=== PATIENT | female | born 1955 | race Caucasian/White ===

== ENCOUNTER 2021-09-29 15:10 | Inpatient (IN) | payer MEDICARE, OTHER ==
[~2021-09-29] VITALS: Ht 154.9 cm; Wt 77.1 kg
[2021-09-29 15:40] VITALS: BP 146/65
--- NOTE | 2021-09-29 15:55 | NUR ---
65 year old female received from [facility] to room 322 for nstemi .pt is axox4 /vs are stable call light with in reach ,orient the pt to room and surroundings ,md notified for the admission
[2021-09-29] MEDS: IV 1/2NS 1000 ML 1,000 ML IV PRN (17:16)
[2021-09-29] MEDS ORDERED: PANTOPRAZOLE SODIUM 40 MG VIAL IV SCH (18:00)
[2021-09-29] MEDS: HYDROCODONE/APAP 5-325MG TABLET PO PRN (18:21)
--- NOTE | 2021-09-29 20:00 | NUR ---
Patient still complains of pain at groin area radiating to thigh with a pain scale 10/10. Notified Dr. Blum regarding patient's pain. Dr Blum to put in pain med. Noted and carried out.
[2021-09-29] MEDS ORDERED: ACETAMINOPHEN 325 MG TABLET PO PRN (20:15)
[2021-09-29] MEDS ORDERED: ONDANSETRON 4 MG/2 ML VIAL IV PRN (20:15)
[2021-09-29] MEDS ORDERED: MORPHINE SULFATE 2 MG/1 ML DISP.SYRIN IV PRN (20:15)
[2021-09-29] MEDS ORDERED: REMEDY ESSENTIAL ZINC PASTE 113 GM TP PRN (20:15)
[2021-09-30 00:06] VITALS: BP 133/67
[2021-09-30 04:24] VITALS: BP 130/51
[2021-09-30] MEDS ORDERED: HYDROMORPHONE 1 MG/1 ML DISP.SYRIN IV ONE (06:45)
--- NOTE | 2021-09-30 06:45 | NUR ---
Dr. Corbin at bedside, update given.
[2021-09-30 07:30] LABS: BILIRUBIN,TOTAL 0.6 mg/dL (0.2-1.0); CREATININE 1.5 mg/dL (0.6-1.3); MAGNESIUM 1.7 mg/dL (1.8-2.4); PHOSPHOROUS 3.2 mg/dL (2.5-4.9); POTASSIUM 4.6 mmol/L (3.5-5.1); TOTAL PROTEIN, SERUM 6.7 g/dL (6.4-8.2)
[2021-09-30 07:36] LABS: HEMATOCRIT 37.1 % (31.2-41.9); MEAN CORPUSCULAR HEMOGLOBIN 30.1 uug (24.7-32.8); MEAN CORPUSCULAR VOLUME 88.4 fL (75.5-95.3); PLATELET COUNT (AUTO) 142 K/uL (179-408)
--- NOTE | 2021-09-30 07:42 | NUR ---
Dilaudid 0.5 mg wasted at bin and witness by BIRGIT Auguste. Dilaudid 0.5mg IV given as ordered.
--- NOTE | 2021-09-30 08:00 | NUR ---
awake alert and oriented x3 no ss of resp distress but mild abdominal pain. awaiting CT abdomen
[2021-09-30] MEDS: PANTOPRAZOLE SODIUM 40 MG VIAL IV SCH (08:45)
[2021-09-30] MEDS: MAGNESIUM SULFATE/D5W 100 ML IV SCH ×2 (09:27→10:32)
[2021-09-30] MEDS: IV 1/2NS 1000 ML 1,000 ML IV PRN (10:32)
--- NOTE | 2021-09-30 11:45 | NUR ---
DR HERMAN'S OFFICE NOTIFIED REGARDING CONSULT MESSAGE LEFT WITH MATH PROFESSOR
[2021-09-30 12:00] VITALS: BP 141/57
--- NOTE | 2021-09-30 13:07 | NUR ---
resting comfortably in but still c/o on and off abdominal pain 09/[address] abdomen/pelvis. no nausea and vomiting.
[2021-09-30] MEDS: HYDROCODONE/APAP 5-325MG TABLET PO PRN ×2 (13:29→22:38)
[2021-09-30 16:00] VITALS: BP 124/59
--- NOTE | 2021-09-30 17:49 | NUR ---
[facility] AWAITING FOR UROLOGIST REGARDING CONSULT. CONTINUE WITH PAIN MANAGEMENT WITH GOOD RELIEF FROM [facility]
[2021-09-30 20:00] VITALS: BP 115/55
[2021-09-30] MEDS ORDERED: CEFTRIAXONE 1 G VIAL IM SCH (20:45)
--- NOTE | 2021-09-30 21:24 | NUR ---
Dr Kenyon in and seen patient and wiht orders and carried out/npo p midnight for the ordered cyctoscopy,right IJ stent placement ,fluoroscopy in am.consent to be signed
[2021-09-30] MEDS ORDERED: CEFTRIAXONE 1 G in IV DEXTROSE 5% 50 ML IV SCH ×2 (21:30→22:00)
--- NOTE | 2021-09-30 21:39 | NUR ---
patient claims the procedure ordered was explained to her by the physician but will sign the consent in the morning. informed that she will be npo p midnight for the ordered procedure.
[2021-09-30 22:16] LABS: *BILIRUBIN,URIN NEGATIVE (NEGATIVE); *BLOOD, URINE 2+ (NEGATIVE); *CLARITY,URINE CLEAR (CLEAR); *COLOR,URINE YELLOW (YELLOW); *KETONES,URINE NEGATIVE (NEGATIVE); *UROBILINOGEN,URINE 0.2 E.U./dl (NORMAL); LEUKOCYTE ESTERASE ,URINE NEGATIVE (NEGATIVE); NITRITE, URINE NEGATIVE (NEGATIVE); PH,URINE 5.5 (5.0-8.0); UGLUCOSE NEGATIVE (NEGATIVE)
--- NOTE | 2021-09-30 23:00 | NUR ---
Assumed care of patient. Report received from Chantell GENAO. Addendum: 09/30/21 at 2334 by [facility] ERUM GENAO report given fore further care
[2021-09-30 23:18] LABS: BACTERIA,URINE NONE SEEN /HPF (NONE SEEN); SQUAMOUS EPITHELIAL CELL,UR FEW /HPF (NONE SEEN)
[2021-10-01] MEDS: IV 1/2NS 1000 ML 1,000 ML IV PRN (02:46)
[2021-10-01 04:00] VITALS: BP 116/62
--- NOTE | 2021-10-01 06:32 | NUR ---
Pt slept throughout the night. No distress noted, no SOB. IV site intact. Consent in chart, pt will sign after she speaks to her doctor this morning. NPO after midnight. Will endorse to day shift.
[2021-10-01 07:31] LABS: HEMATOCRIT 37.1 % (31.2-41.9); MEAN CORPUSCULAR HEMOGLOBIN 29.8 uug (24.7-32.8); MEAN CORPUSCULAR VOLUME 88.6 fL (75.5-95.3); PLATELET COUNT (AUTO) 154 K/uL (179-408)
[2021-10-01 07:33] LABS: CREATININE 1.4 mg/dL (0.6-1.3); MAGNESIUM 2.1 mg/dL (1.8-2.4); POTASSIUM 4.2 mmol/L (3.5-5.1)
[2021-10-01] MEDS: PANTOPRAZOLE SODIUM 40 MG VIAL IV SCH (09:07)
[2021-10-01 12:00] VITALS: BP 151/75
--- NOTE | 2021-10-01 14:27 | NUR ---
patient picked up by OR nurses.
[2021-10-01] MEDS ORDERED: IOHEXOL 300MG/ML 50 ML VIAL ONE (15:03)
[2021-10-01] MEDS ORDERED: MIDAZOLAM HCL 2 MG/2 ML VIAL ONE (15:06)
[2021-10-01] MEDS ORDERED: FENTANYL CITRATE 100 MCG/2 ML AMPUL ONE (15:08)
--- NOTE | 2021-10-01 17:38 | NUR ---
son anusha requesting call from Dr. nathan MD notified, per MD he left detailed message from son, family made aware.
--- NOTE | 2021-10-01 18:00 | NUR ---
patient assisted downstairs, gait is steady, upon discharge no c/o pain, v/s wnl.
--- NOTE | 2021-10-01 18:00 | NUR ---
new discharge orders, discharge orders explained to patient, patient states understanding. all paperwork signed. inventory checklist reviewed with patient and signed all belongings accounted for. IV site removed minimal bleeding noted at this time.
[2021-10-01] MEDS ORDERED: METOCLOPRAMIDE HCL 10 MG/2 ML VIAL IV ONE (18:38)
[2021-10-01] MEDS ORDERED: LIDOCAINE-MPF 2% 5 ML VIAL IJ ONE (18:38)
[2021-10-01] MEDS ORDERED: ONDANSETRON 4 MG/2 ML VIAL IV ONE (18:38)
[2021-10-01] MEDS ORDERED: CEFAZOLIN 1 G VIAL IM ONE (18:38)
[2021-10-01] MEDS ORDERED: SEVOFLURANE 250 ML BOTTLE IH ONE (18:38)
[2021-10-01] MEDS ORDERED: PROPOFOL 200 MG/20 ML BOTTLE IV ONE (18:38)
== END 2021-10-01 18:39 | disposition home or self-care (01) | DRG 694 ==
LOC: TELE3 15:10 → MEDSURG3 09-30 10:15
PROVIDERS: ADMIT Internal Medicine; ATTEND Internal Medicine
PROC: 0TJB8ZZ Inspection of Bladder, Via Natural or Artificial Opening Endoscopic (ICD-10-PCS; principal; 2021-10-01)
DX: N13.2 Hydronephrosis with renal and ureteral calculous obstruction (principal); K29.00 Acute gastritis without bleeding; N17.0 Acute kidney failure with tubular necrosis; I25.10 Atherosclerotic heart disease of native coronary artery without angina pectoris; Z95.5 Presence of coronary angioplasty implant and graft; I10 Essential (primary) hypertension; Z87.442 Personal history of urinary calculi; R77.8 Other specified abnormalities of plasma proteins; Z79.1 Long term (current) use of non-steroidal anti-inflammatories (NSAID)
CPT/HCPCS: 36415; 74018; 83735; 84100; 84484; 85025; 85730; 93005; 93307; C1758; C9113; G0378; J0690; J0696; J1170; J2250; J2270; J2405; J2765; J3010; J3475; J3490; J7060; Q9967